=== PATIENT | female | born 1995 | race Caucasian/White ===

== ENCOUNTER → 2021-06-25 | Outpatient (REF) | payer OTHER | LOC: M LAB REF 15:56 | PROVIDERS: ATTEND Physician Assistant | DX: N39.0 Urinary tract infection, site not specified (principal) ==

== ENCOUNTER → 2022-02-09 | Outpatient (CLI) | payer OTHER, SELFPAY ==
[~2022-02-09] MED LIST: ISOVUE-370 76% 100ML VIAL As Ordered ONE
== END ==
LOC: M RADPRO 11:47
PROVIDERS: ATTEND Obstetrics & Gynecology
DX: N97.9 Female infertility, unspecified (principal); Z53.9 Procedure and treatment not carried out, unspecified reason

== ENCOUNTER → 2022-03-13 | Outpatient (CLI) | payer OTHER | LOC: M RADPRO 11:23 | PROVIDERS: ATTEND Obstetrics & Gynecology | DX: N97.9 Female infertility, unspecified (principal) ==

== ENCOUNTER 2023-04-14 15:35 | Outpatient (CLI) | payer OTHER ==
[~2023-04-14] VITALS: Ht 165.1 cm; Wt 97.8 kg
[2023-04-14 15:58] VITALS: BP 132/80
[2023-04-14] MEDS ORDERED: VALT1TAB PO (16:01)
[2023-04-14] MEDS ORDERED: PRENTAB9 PO (16:01)
[2023-04-14] MEDS ORDERED: HOME MED LIST COMPLETE! XX SCH (16:05)
== END 2023-04-14 16:30 | disposition home or self-care (01) ==
LOC: M LDO 15:35
PROVIDERS: ATTEND Obstetrics & Gynecology
DX: O47.03 False labor before 37 completed weeks of gestation, third trimester (principal); Z3A.37 37 weeks gestation of pregnancy; Z79.899 Other long term (current) drug therapy
CPT/HCPCS: 59025; 76815; 81001; 87086; G0463

== ENCOUNTER 2023-04-28 05:20 | Inpatient (IN) | payer OTHER ==
[~2023-04-28] VITALS: Ht 165.1 cm; Wt 98.2 kg
[2023-04-28] VITALS (9 sets, daily range): BP systolic 116–131; BP diastolic 64–75; TEMP 97.6; O2SAT 96–99
[~2023-04-28 05:20] MED LIST changes: -ISOVUE-370 76% 100ML VIAL As Ordered ONE; +PRENTAB9 PO; +VALA500T5 PO; +VALT1TAB PO
[2023-04-28] MEDS ORDERED: ceFAZolin SOD 2 GM in IV 1 EA IV ONE (05:35)
[2023-04-28] MEDS ORDERED: BICITRA 30ML SOLN UDC PO ONE (05:35)
[2023-04-28] MEDS ORDERED: LR 1,000 ML IV ONE (05:35)
[2023-04-28 06:26] LABS: HEMATOCRIT 40.4 % (36.0-47.0); HEMOGLOBIN 13.6 g/dl (12.0-15.5); MEAN CORPUSCULAR HEMOGLOBIN 27.8 pg (27.0-33.0); MEAN CORPUSCULAR HGB CONC 33.7 g/dl (32.0-36.5); MEAN CORPUSCULAR VOLUME 82.4 fl (80.0-96.0); PLATELET COUNT, AUTOMATED 287 10^3/uL (150-450); WHITE BLOOD COUNT 10.3 10^3/uL (4.0-10.0)
[2023-04-28] MEDS: LR 1,000 ML IV SCH ×2 (06:32→09:46)
[2023-04-28] MEDS ORDERED: MORPHINE PRES-FREE INJ 10 MG/10 ML VIAL As Ordered ONE (07:47)
[2023-04-28] MEDS ORDERED: KETOROLAC 60MG 2ML VIAL As Ordered ONE (07:47)
[2023-04-28] MEDS ORDERED: OXYTOCIN 30UNITS IN 0.9% NaCl 500ML IV BAG As Ordered ONE (07:47)
[2023-04-28] MEDS ORDERED: ACETAMINOPHEN 1000MG 100ML IV BAG As Ordered ONE (07:47)
[2023-04-28] MEDS ORDERED: ONDANSETRON 4MG 2ML VIAL As Ordered ONE (07:47)
[2023-04-28] MEDS ORDERED: ePHEDrine SULFATE 25 MG/5 ML(5MG/ML) SYRINGE As Ordered ONE (07:57)
[2023-04-28] MEDS ORDERED: METHYLERGONOVINE MALEATE 0.2 MG TAB PO PRN (09:05)
[2023-04-28] MEDS ORDERED: ONDANSETRON 4MG 2ML VIAL IV PRN ×2 (09:05→09:30)
[2023-04-28] MEDS ORDERED: SIMETHICONE 80MG CHEW TAB PO PRN (09:05)
[2023-04-28] MEDS ORDERED: oxyCODONE 5MG TAB PO PRN ×3 (09:05→09:30)
[2023-04-28] MEDS ORDERED: RHOGAM 300MCG (1500IU) INJ IM SCH (09:05)
[2023-04-28] MEDS ORDERED: MOM 30ML SUSPENSION UDC PO PRN (09:05)
[2023-04-28] MEDS ORDERED: **NOTE PATIENT COMMENT** MISC XX SCH (09:30)
[2023-04-28] MEDS ORDERED: METOCLOPRAMIDE INJ 10MG/2ML VIAL IV PRN (09:30)
[2023-04-28] MEDS ORDERED: NALOXONE INJ 0.4MG/1ML VIAL IV PRN ×2 (09:30)
[2023-04-28] MEDS ORDERED: diphenhydrAMINE 50MG/ML VIAL IV PRN (09:30)
[2023-04-28] MEDS ORDERED: MEPERIDINE 25 MG/ML 1ML VIAL IV PRN (09:30)
[2023-04-28] MEDS: SLF 3 ML SYR IV SCH (09:30)
[2023-04-28] MEDS ORDERED: HYDROMORPHONE HCL 0.5 MG/ 0.5 ML SYRINGE IV PRN (09:30)
[2023-04-28] MEDS ORDERED: fentaNYL 100 MCG/2 ML INJECTION IV PRN (09:30)
[2023-04-28] MEDS: KETOROLAC 30 MG/ML 1ML VIAL IV SCH ×2 (15:51→20:11)
[2023-04-28] MEDS: DOCUSATE SODIUM 100MG CAPSULE PO SCH (20:11)
[2023-04-29 02:00] VITALS: BP 119/69; O2SAT 96
[2023-04-29] MEDS: SLF 3 ML SYR IV SCH (02:22)
[2023-04-29] MEDS: KETOROLAC 30 MG/ML 1ML VIAL IV SCH (02:41)
[2023-04-29 06:00] VITALS: BP 129/67; O2SAT 96
[2023-04-29 06:57] LABS: HEMATOCRIT 36.6 % (36.0-47.0); MEAN CORPUSCULAR HEMOGLOBIN 27.8 pg (27.0-33.0); MEAN CORPUSCULAR HGB CONC 32.8 g/dl (32.0-36.5); MEAN CORPUSCULAR VOLUME 84.9 fl (80.0-96.0); PLATELET COUNT, AUTOMATED 234 10^3/uL (150-450); RED BLOOD COUNT 4.31 10^6/uL (4.00-5.40); WHITE BLOOD COUNT 9.8 10^3/uL (4.0-10.0)
[2023-04-29] MEDS: DOCUSATE SODIUM 100MG CAPSULE PO SCH ×2 (08:45→20:52)
[2023-04-29] MEDS: PRENATAL VITAMINS CHEWABLE TABLET PO SCH (08:45)
[2023-04-29 10:00] VITALS: BP 118/63; O2SAT 98
[2023-04-29] MEDS: IBUPROFEN 800 MG TAB PO PRN ×2 (13:33→20:52)
[2023-04-29 14:00] VITALS: BP 128/74; O2SAT 97
[2023-04-29 17:44] VITALS: BP 125/66; O2SAT 97
[2023-04-29] MEDS: ACETAMINOPHEN 500 MG TAB PO PRN (18:21)
[2023-04-29 22:00] VITALS: BP 118/67; O2SAT 97
[2023-04-30 02:00] VITALS: BP 117/63; O2SAT 98
[2023-04-30] MEDS: ACETAMINOPHEN 500 MG TAB PO PRN (03:14)
[2023-04-30 06:00] VITALS: BP 133/84; O2SAT 98
[2023-04-30] MEDS: DOCUSATE SODIUM 100MG CAPSULE PO SCH (07:47)
[2023-04-30] MEDS: PRENATAL VITAMINS CHEWABLE TABLET PO SCH (07:47)
[2023-04-30] MEDS: IBUPROFEN 800 MG TAB PO PRN (07:48)
[2023-04-30] MEDS ORDERED: MEASLES,MUMPS,RUBELLA VACCINE INJ (MMR-II) SC.IMMUN ONE (09:00)
[2023-04-30] MEDS ORDERED: INFLUENZA QUADRIVALENT PF VACCINE 0.5ML SYRINGE IM.IMMUN ONE (09:00)
[2023-04-30] MEDS ORDERED: COLA100C5 PO (09:47)
[2023-04-30] MEDS ORDERED: ACET-683 PO (09:47)
[2023-04-30] MEDS ORDERED: IBUP80TA PO (09:47)
[2023-04-30] MEDS ORDERED: OXYC-517 PO (09:47)
[2023-04-30 09:55] VITALS: BP 125/71; O2SAT 97
== END 2023-04-30 13:35 | disposition home or self-care (01) | DRG 773 ==
LOC: M LDI 05:20 → M OBS 10:20
PROVIDERS: ADMIT Obstetrics & Gynecology; ATTEND Obstetrics & Gynecology
PROC: 10D00Z1 Extraction of Products of Conception, Low, Open Approach (ICD-10-PCS; principal; 2023-04-28 07:30)
DX: O32.1XX0 Maternal care for breech presentation, not applicable or unspecified (principal); Z37.0 Single live birth; Z3A.39 39 weeks gestation of pregnancy

== ENCOUNTER → 2023-11-15 | Outpatient (REF) | payer OTHER ==
[~2023-11-15] MED LIST changes: +ACET-683 PO; +COLA100C5 PO; +IBUP80TA PO; +OXYC-517 PO
== END ==
LOC: M LAB REF 16:25
PROVIDERS: ATTEND Nurse Practitioner Family
DX: R30.0 Dysuria (principal)